=== PATIENT | male | born 1950 | race Caucasian/White ===

== ENCOUNTER 2018-03-13 07:28 | Inpatient (IN) | payer MEDICARE, BC ==
[~2018-03-13] VITALS: Ht 175.3 cm; Wt 116.7 kg
[2018-03-13 08:22] LABS: HEMATOCRIT 41.3 % (42.0-52.0); MEAN CELL VOLUME 87 fl (80.0-100.0); MEAN CORPUSCULAR HEMOGLOBIN 32 pg (27.0-31.0); MEAN CORPUSCULAR HGB CONC 36 g/dl (33.0-37.0); MEAN PLATELET VOLUME 9.8 fl (7.4-10.4); PLATELET COUNT 167 K/mm3 (130-400); RED BLOOD COUNT 4.73 M/mm3 (4.20-5.60); REDCELL DISTRIBUTION WIDTH-CV 12.8 % (11.5-14.5)
[2018-03-13 08:26] LABS: ALBUMIN 3.8 gm/dL (3.5-5.0); BILIRUBIN,TOTAL 1.3 mg/dL (0.0-1.0); CALCIUM 8.5 mg/dL (8.4-10.2); CREATININE, serum 1.93 mg/dL (0.66-1.25); POTASSIUM 3.5 mmol/L (3.4-5.0); TOTAL PROTEIN 7.1 gm/dL (6.4-8.2)
[2018-03-13 08:43] LABS: BAND 35 % (0-10); LYMPHOCYTE 4 % (20.0-51.0); METAMYELOCYTE 1 % (0-0); NEUTROPHILS 56 % (42.0-75.2)
[2018-03-13 08:44] LABS: PLATELET ESTIMATE NORMAL (NORMAL)
[2018-03-13 08:46] LABS: DOHLE BODIES PRESENT
[2018-03-13 09:01] LABS: COLLECTION METHOD CATHETER
[2018-03-13 09:14] LABS: PH 5 (5-8); SQUAMOUS EPITHELIAL None Seen /hpf; URINE APPEARANCE Clear; URINE BACTERIA Rare /hpf; URINE BILIRUBIN Negative (NEGATIVE); URINE BLOOD 2+ (NEGATIVE); URINE COLOR Yellow; URINE GLUCOSE Negative (NEGATIVE); URINE KETONE Trace (NEGATIVE); URINE LEUKOCYTE ESTERASE Negative (NEGATIVE); URINE NITRATE Negative (NEGATIVE); URINE PROTEIN(semi-quant) Negative (NEGATIVE); URINE UROBILINOGEN Negative (NEGATIVE)
[2018-03-13 11:21] VITALS: BP 117/74; PULSE 100; TEMP 97.7
[2018-03-13] MEDS ORDERED: PRINZIDE 12.5 M1 TA1 PO (15:42)
[2018-03-13] MEDS ORDERED: ASPIRIN 32325 MG/TAB PO (15:44)
[2018-03-13 16:03] VITALS: BP 127/63; PULSE 89; TEMP 98
[2018-03-13 20:20] VITALS: BP 130/65; PULSE 102; TEMP 99.3
[2018-03-14] VITALS (7 sets, daily range): BP systolic 110–138; BP diastolic 59–73; PULSE 82–95; TEMP 97.5–98.4
[2018-03-14 05:46] LABS: BASO # 0.1 (0.0-0.2); BASO % 0.3 % (0.0-2.0); EOS # 0.1 (0.0-0.7); EOS % 0.7 % (0-4.0); GRAN % 84.7 % (42.2-75.2); HEMATOCRIT 39.7 % (42.0-52.0); LYMPH # 1.4 (1.2-3.4); LYMPH % 7.6 % (20.0-51.0); MEAN CELL VOLUME 90 fl (80.0-100.0); MEAN CORPUSCULAR HEMOGLOBIN 32 pg (27.0-31.0); MEAN CORPUSCULAR HGB CONC 35 g/dl (33.0-37.0); MEAN PLATELET VOLUME 10.1 fl (7.4-10.4); MONO % 5.5 % (1.7-9.3); PLATELET COUNT 168 K/mm3 (130-400); RED BLOOD COUNT 4.43 M/mm3 (4.20-5.60); REDCELL DISTRIBUTION WIDTH-CV 13.1 % (11.5-14.5)
[2018-03-14 06:04] LABS: CREATININE, serum 1.06 mg/dL (0.66-1.25); POTASSIUM 3.5 mmol/L (3.4-5.0)
[2018-03-15 04:14] VITALS: BP 123/69; PULSE 91; TEMP 99.2
[2018-03-15 06:31] LABS: HEMOGLOBIN 14.2 g/dl (13.5-18.0); MEAN CELL VOLUME 90 fl (80.0-100.0); MEAN CORPUSCULAR HEMOGLOBIN 31 pg (27.0-31.0); MEAN CORPUSCULAR HGB CONC 35 g/dl (33.0-37.0); MEAN PLATELET VOLUME 9.8 fl (7.4-10.4); PLATELET COUNT 183 K/mm3 (130-400); RED BLOOD COUNT 4.55 M/mm3 (4.20-5.60); REDCELL DISTRIBUTION WIDTH-CV 13.1 % (11.5-14.5)
[2018-03-15 06:45] LABS: BAND 16 % (0-10); EOSINOPHIL 5 % (0-4); LYMPHOCYTE 16 % (20.0-51.0); METAMYELOCYTE 1 % (0-0); NEUTROPHILS 56 % (42.0-75.2)
[2018-03-15 06:46] LABS: PLATELET ESTIMATE NORMAL (NORMAL)
[2018-03-15 06:49] LABS: CALCIUM 8.2 mg/dL (8.4-10.2); POTASSIUM 3.8 mmol/L (3.4-5.0)
[2018-03-15 07:11] VITALS: BP 146/67; PULSE 89; TEMP 98.3
[2018-03-15 11:19] VITALS: BP 137/72; PULSE 96; TEMP 99
[2018-03-15 15:54] VITALS: BP 133/73; PULSE 101; TEMP 98.2
[2018-03-15 19:17] VITALS: BP 149/66; PULSE 102; TEMP 98
[2018-03-15 23:21] VITALS: BP 133/62; PULSE 89; TEMP 98
[2018-03-16 07:06] LABS: HEMOGLOBIN 14.8 g/dl (13.5-18.0); MEAN CELL VOLUME 90 fl (80.0-100.0); MEAN CORPUSCULAR HEMOGLOBIN 31 pg (27.0-31.0); MEAN CORPUSCULAR HGB CONC 34 g/dl (33.0-37.0); MEAN PLATELET VOLUME 9.9 fl (7.4-10.4); PLATELET COUNT 187 K/mm3 (130-400); RED BLOOD COUNT 4.77 M/mm3 (4.20-5.60)
[2018-03-16 07:11] LABS: CALCIUM 8.4 mg/dL (8.4-10.2); CREATININE, serum 1.02 mg/dL (0.66-1.25); POTASSIUM 3.5 mmol/L (3.4-5.0)
[2018-03-16 07:45] VITALS: BP 137/63; PULSE 85; TEMP 98.7
[2018-03-16 07:50] LABS: BAND 9 % (0-10); LYMPHOCYTE 14 % (20.0-51.0); MYELOCYTE 1 % (0-0); NEUTROPHILS 64 % (42.0-75.2); PLATELET ESTIMATE NORMAL (NORMAL)
[2018-03-16 08:57] LABS: PATHOLOGY DIFF REVIEW OK +
[2018-03-16] MEDS ORDERED: CIPRO 500MG TA500 MG PO (10:44)
[2018-03-16] MEDS ORDERED: FLOMAX 0.40.4 MG/CAP PO (10:44)
== END 2018-03-16 13:40 | disposition home or self-care (01) | DRG 728 ==
LOC: COL.ER 07:28 → MEDICAL 09:50
PROVIDERS: Emergency Medicine; Hospitalist; Physician Assistant
DX: N41.0 Acute prostatitis (principal); N17.9 Acute kidney failure, unspecified; R33.9 Retention of urine, unspecified; I10 Essential (primary) hypertension
CPT/HCPCS: 99222-AI; 99232-AI; 99239; G0103; J0744; J1644; J7030